=== PATIENT | female | born 1955 | race Caucasian/White ===

== ENCOUNTER 2016-12-03 07:30 | Emergency (ER) | payer OTHER ==
--- NOTE | ~2016-12-03 | CT16 ---
[facility] A Service [facility] RADIOLOGY TEXT RESULTS PATIENT: ROBBIE AKERS LOCATION: [facility] : 55 UNIT #: [id number] AGE: [address]: Price Asher MD SEX: F ORDER DR: [id number] [facility] [address] [place], [place] [address] [id number] E MR#: [id number] Acc #: [id number] NAME: ROBBIE AKERS : 1955 SEX: F STUDY DATE/TIME: 12/03/2016 16:02 UNIT: [facility] ROOM: STUDY DESCRIPTION: CT Angio Chest for PE Attending Physician: Price Asher M.D. Ordering Physician: Liv Bee M.D. Primary Care Physician: Nu Flowers M.D. MEDICAL IMAGING REPORT This report is preliminary unless electronic signature is present EXAM Chest CTA 12/03/14 INDICATIONS Midchest pain and mid back pain for a few days. Shortness of air which is chronic. History of hypertension. TECHNIQUE Axial images were obtained through the chest following IV contrast administration. 3-D reformats were obtained. Comparison made with 06/25/2011. This CT exam was performed with one or more of the following radiation dose reduction techniques: automatic exposure control, adjustment of mA and/or kV according to patient size, and iterative reconstruction. FINDINGS There is no pulmonary embolism or aortic dissection. There is coronary artery disease. No pleural or pericardial effusion. No adenopathy. There is some right upper lobe scarring. The lungs are otherwise clear. Upper abdomen shows cholecystectomy. Upper abdomen demonstrates an enlarged aortocaval lymph node. It measures about 1.5 cm short axis. However, is not appreciably changed from prior study and presumably benign. Prominent periportal lymph node is also stable and felt be benign. IMPRESSION 1. No pulmonary embolism or aortic dissection. 2. No active disease in the chest. Dictated by... Joe Love Jr., M.D. [facility] A Service [facility] RADIOLOGY TEXT RESULTS PATIENT: ROBBIE AKERS LOCATION: [facility] #: [id number] : 55 UNIT #: [id number] AGE: [address]: Price Asher MD SEX: F ORDER DR: THIS IS AN ELECTRONICALLY VERIFIED REPORT Joe Love Jr., M.D. at 12/04/2016 11:22 AM Alla TD: 12/03/2016 20:59 JOB #: [id number] MEDICAL IMAGING REPORT Page 1 of 1 COPY
--- NOTE | ~2016-12-03 | CR72 ---
[facility] A Service of [facility] & [facility] RADIOLOGY TEXT RESULTS PATIENT: ROBBIE AKERS LOCATION: [facility] : 55 UNIT #: [id number] AGE: [address]: Liv Bee MD SEX: F ORDER DR: [id number] [facility] [address] [place], [place] [address] [id number] E MR#: [id number] Acc #: [id number] NAME: ROBBIE AKERS : 1955 SEX: F STUDY DATE/TIME: 12/03/2016 7:46 UNIT: [facility] ROOM: STUDY DESCRIPTION: CR Chest Single View Portable Attending Physician: Liv Bee M.D. Ordering Physician: Ed Doctor [id number] [facility] Primary Care Physician: Nu Flowers M.D. MEDICAL IMAGING REPORT This report is preliminary unless electronic signature is present EXAM Portable chest 12/03 INDICATIONS Shortness of air and midsternal chest pain for the last 2-4 days. History of hypertension and CHF. FINDINGS AP portable chest compared with 08/22/2016. Cardiac and mediastinal contours are within normal limits. The lungs are clear. No pneumothorax is seen. IMPRESSION No active disease. Dictated by... Joe Love Jr., M.D. THIS IS AN ELECTRONICALLY VERIFIED REPORT Joe Love Jr., M.D. at 12/03/2016 12:40 PM SHALONDA/jose angel TD: 12/03/2016 10:41 JOB #: [id number] MEDICAL IMAGING REPORT Page 1 of 1 COPY
--- NOTE | ~2016-12-03 | CO ---
Unit #: [id number] #: [id number] Patient: ROBBIE AKERS [id number] [address] [place], [place] [address] [id number] E MR#: [id number] NAME: ROBBIE AKERS ROOM: Age: 61 Sex: F Admission Date: 12/03/2016 : 1955 Attending Physician: Price Asher M.D. Primary Care Physician: Nu Flowers M.D. Consultation Date: 12/03/2016 CONSULTATION REPORT DICTATED FOR Dr. Mica Gleason. REASON FOR CONSULTATION Chest pain. HISTORY OF PRESENT ILLNESS The patient is a 61-year-old white female with a history of coronary artery disease with a catheterization in 2012 showing nonobstructive disease; hypertension; hyperlipidemia; diabetes; tobacco abuse; marijuana use; obstructive sleep apnea, and is noncompliant with CPAP; obesity; and chronic pain issues. The patient presents to the [facility] ED on 12/03/2016 with complaints of chest pain and pressure that she has felt for the past two days, and she states it radiates to her neck as well as her right arm. She also complains of cough, chills, and palpitations, but denies any kind of nausea, vomiting, diarrhea, or fevers. Here in the ER, the patient has had troponin x2 that were negative and the EKG shows no acute changes. BNP is 16. Showed left main 20% distally, LAD 30% to 40% in the mid section, first diagonal 50% in the mid, the second diagonal 50% proximally, left circumflex 50% to 60% at the ostium, 40% to 50% distally, and RCA was 30% in the mid and proximal with an EF of 45%. We are here in the ER to evaluate the patient for chest pain and to determine admission status. PAST MEDICAL HISTORY 1. Coronary artery disease, it is nonobstructive. 2. Hypertension. 3. Hyperlipidemia. 4. Diabetes. 5. Tobacco abuse. 6. Marijuana abuse. 7. Obstructive sleep apnea, it is nontreated with CPAP. 8. Obesity. 9. History of pain pill abuse as well. SURGICAL HISTORY 1. Lap debra. 2. Tonsillectomy. SOCIAL HISTORY The patient is a half [id number] smoker for the last 30 years. The patient also reports occasional alcohol that is on a weekly basis. She Unit #: [id number] #: [id number] Patient: ROBBIE AKERS also reports marijuana that is pretty regular. She also has a history of pain pill abuse that she states that she weaned herself off. She does live alone. She does her own housekeeping, cleaning, and cooking. She states that she cannot walk very far due to her chronic pain issues. FAMILY HISTORY Positive family history. ALLERGIES Morphine and Toradol. HOME MEDICATIONS 1. Lisinopril 10 mg p.o. daily. 2. Vitamin D2 07182 units p.o. weekly. 3. Gabapentin 300 mg p.o. twice a day. 4. Humalog 75/25; 33 units in the morning, 23 at night. 5. Januvia 100 mg p.o. daily. 6. Zantac 150 mg p.o. twice a day. 7. Flonase daily. REVIEW OF SYSTEMS See HPI. PHYSICAL EXAMINATION GENERAL: This is a 61-year-old white female, who is alert and oriented x3, and in no apparent distress. VITAL SIGNS: Blood pressure 119/71, temperature 97.6, heart rate 78, and respirations 12. HEENT: Pupils are equal, round, and reactive. Oral mucosa is moist. NECK: No JVD. No thyromegaly. No lymphadenopathy. No carotid bruits. HEART: S1, S2. No S3 or S4. No clicks. no rubs. No murmurs. ABDOMEN: Soft. Bowel sounds are positive. Nontender. Nondistended. EXTREMITIES: No swelling. NEUROLOGICAL: No neuro deficits noted. DIAGNOSTIC STUDIES LABORATORY RESULTS: Troponin less than 0.05 and less than 0.05. White count 12, hemoglobin 14.7, hematocrit 43.8, and platelets 272. Sodium 137, potassium 3.9, chloride 102, CO2 of 24, BUN 20 creatinine 0.9, and glucose 195. BNP 16. IMAGING STUDIES: Chest x-ray shows no active disease. DISCHARGE DIAGNOSES Include; 1. Atypical chest pain. 2. Nonobstructive coronary artery disease. 3. Hypertension. 4. Hyperlipidemia. 5. Diabetes. 6. Tobacco abuse. 7. Obstructive sleep apnea, it is not treated with CPAP. 8. Obesity. DISCHARGE MEDICATIONS Include all home medications in addition to; 1. Toprol-XL 25 mg p.o. daily. 2. Pravastatin 20 mg p.o. daily. Unit #: [id number] #: [id number] Patient: ROBBIE AKERS 3. Aspirin 81 mg p.o. daily. PLAN The patient is going to be discharged home on the appropriate medical treatment for her cardiomyopathy as well as her coronary artery disease. The patient will then follow up in the office in one week. If the patient persists with cardiac symptoms of chest pain, pressure, tightness, or shortness of breath, I think cardiac cath or further cardiac workup can be determined at that time. The patient will follow up with Dr. Gleason in the office at [facility] in one week. EKG showed no acute changes and blood pressure is currently within normal limits. We will have the ER physician to check a D-dimer and ensure that is normal. If it is normal, the patient will be sent home today. Again, follow up in the office in one week. Dictated by... CESARIO Paredes TD: 12/04/2016 13:28 JOB #: [id number] CONSULTATION REPORT Page 1 of 1 X X CONSULTATION REPORT
--- NOTE | ~2016-12-03 | EKG ---
PATIENT: ROBBIE AKERS UNIT #: [id number] Ventricular Rate: 106 BPM Atrial Rate: 106 BPM P-R Interval: 152 ms QRS Duration: 84 ms Q-T Interval: 300 ms QTC Calculation(Bezet): 398 ms P [place]: 63 degrees Calculated R [place]: 0 degrees Calculated T [place]: 132 degrees Diagnosis Line: Sinus tachycardia Diagnosis Line: Nonspecific T wave abnormality Diagnosis Line: Abnormal ECG Diagnosis Line: When compared with ECG of 07-MAR-2015 17:03, Diagnosis Line: Vent. rate has increased BY 35 BPM Diagnosis Line: Nonspecific T wave abnormality has replaced Diagnosis Line: inverted T waves in Anterior leads Diagnosis Line: Confirmed by BETH WILBURN MD ([id number]) on Diagnosis Line: 12/03/2016 10:44:02 PM INTERPRETING MD: WERNER
[~2016-12-03 07:30] MED LIST: ACETAMINOPHEN PO; ALPRAZOLAM PO; ASPIRIN PO; ASPIRIN81 MG PO; FLEXERIL PO; GLIPIZIDE10 MG PO; GLUCOTROL; GLUCOTROL PO; IBUPROFEN PO; IMDUR PO; LASIX PO; LISINOPRIL PO; LISINOPRIL10 MG PO; LOPRESSOR; LOPRESSOR PO; LORTAB 10/500 T1 TAB PO; MEDROL PO; METFORMIN HCL500 M1 PO; METOPROLOL TART25 MG PO; NORFLEX100 MG PO; PARAFON FORTE500 MG PO; PERCOCET10 PO; PERCOCET7.5 PO; PLAVIX PO; PRAVASTATIN SOD20 MG PO; PRAVASTATIN SOD40 MG PO; PRILOSEC; PRILOSEC PO; PRILOSEC20 MG PO; ROXICODONE15 MG PO; ZESTORETIC 20/11 TAB PO; ZESTRIL10 M1 PO; ZOCOR PO
[2016-12-03 08:18] LABS: POC - CKMB 2.2 ng/mL (0.0-7.9); POC - TROPONIN <0.05 ng/mL (<=0.05)
[2016-12-03 08:23] LABS: BASOPHIL# 0.1 X10e3 (0-0.3); BASOPHIL% 0.4 % (0-2.5); EOSINOPHIL# 0.1 X10e3 (0-0.7); EOSINOPHIL% 0.4 % (0.0-7.0); HEMATOCRIT 43.8 % (35.0-45.0); HEMOGLOBIN 14.7 gm/dL (12.0-16.0); LYMPHOCYTE# 2.4 X10e3 (1.0-3.5); LYMPHOCYTE% 19.7 % (17.0-45.0); MEAN CELL VOLUME 94.4 FL (83-96); MEAN CORPUSCULAR HEMOGLOBIN 31.6 PG (28-34); MEAN CORPUSCULAR HGB CONC 33.5 g/dL (30-36); MEAN PLATELET VOLUME 8.5 FL (6.5-11.5); MONOCYTE# 0.6 X10e3 (0-1.0); NEUTROPHIL# 8.9 X10e3 (1.5-7.1); NEUTROPHIL% 74.5 % (40-75); PLATELET COUNT 272 X10e3 (140-420); RED BLOOD COUNT 4.64 X10e (3.90-5.30)
[2016-12-03 08:29] LABS: DIFF IND NO
[2016-12-03 08:40] LABS: ALKALINE PHOSPHATASE 72 U/L (32-92); ALT (SGPT) 18 U/L (10-40); AST (SGOT) 21 U/L (10-42); BILIRUBIN,TOTAL 0.8 mg/dL (0.2-2.0); BLOOD UREA NITROGEN 20 mg/dL (9-23); BUN/CREATININE RATIO 22.22; CALCIUM SERUM 9.9 mg/dL (8.4-10.2); CARBON DIOXIDE 24 mmol/L (22-31); CHLORIDE 102 mmol/L (100-111); CREATININE SERUM 0.9 mg/dL (0.6-1.4); GLOM FILT RATE Estimated 69.1 mL/min (>60); GLUCOSE FASTING 195 mg/dL (70-110); POTASSIUM 3.9 mmol/L (3.5-5.1); PROTEIN TOTAL SERUM 8.3 g/dL (6.0-8.3); SODIUM 137 mmol/L (135-145)
[2016-12-03 08:53] LABS: BILIRUBIN, DIRECT <0.1 mg/dL (0.0-0.2); BILIRUBIN,INDIRECT 0.7 mg/dL (0.0-0.9)
[2016-12-03 08:57] LABS: PARTIAL THROMBOPLASTIN TIME 25.2 SECONDS (23.5-31.3); PROTHROMBIN TIME (PATIENT) 10.3 SECONDS (9.6-11.5)
[2016-12-03 10:35] LABS: POC - CKMB 2.4 ng/mL (0.0-7.9); POC - TROPONIN <0.05 ng/mL (<=0.05)
[2016-12-03] MEDS ORDERED: GABAPENTIN300 M2 PO (13:10)
[2016-12-03] MEDS ORDERED: VITAMIN D250000 UNIT PO (13:10)
[2016-12-03] MEDS ORDERED: LISINOPRIL PO (13:10)
[2016-12-03] MEDS ORDERED: PATIENT'S PHARMACY (13:10)
[2016-12-03] MEDS ORDERED: HUMALOG MI100 UNIT/1 SUBQ (13:11)
[2016-12-03] MEDS ORDERED: JANUVIA PO (13:11)
[2016-12-03] MEDS ORDERED: ZANTAC150 M1 PO (13:12)
[2016-12-03] MEDS ORDERED: FLONASE ALLERG9.9 ML (13:17)
== END 2016-12-03 17:28 | disposition home or self-care (01) ==
LOC: CED 07:30
PROVIDERS: Emergency Medicine; Surgery
DX: R07.89 Other chest pain (principal); I11.0 Hypertensive heart disease with heart failure; I50.9 Heart failure, unspecified; E11.9 Type 2 diabetes mellitus without complications; F41.9 Anxiety disorder, unspecified; G47.33 Obstructive sleep apnea (adult) (pediatric); Z90.49 Acquired absence of other specified parts of digestive tract; E66.9 Obesity, unspecified; F17.210 Nicotine dependence, cigarettes, uncomplicated; Z90.89 Acquired absence of other organs; Z98.890 Other specified postprocedural states; Z88.6 Allergy status to analgesic agent; Z88.5 Allergy status to narcotic agent; Z79.4 Long term (current) use of insulin; Z79.899 Other long term (current) drug therapy
CPT/HCPCS: 36415; 71010; 71275; 80048; 80076; 82553; 83880; 84484; 85025; 85379; 85610; 85730; 93005; 99284; 99285; Q9967